=== PATIENT | male | born 1990 | race American Indian/Alaskan Native ===

== ENCOUNTER 2018-05-09 08:26 | Emergency (ER) | payer OTHER ==
[2018-05-09 08:33] VITALS: BP 134/86; PULSE 62; RESP 18; TEMP 97.3; O2SAT 100
--- NOTE | 2018-05-09 09:03 | C.PDOC ---
History Of Present Illness 27 yo male w/o significant PMHx come inf or evaluation of cold sx for past 2 weeks associated with bodyaches, nasal congestion, dry cough, nausea. Patient reports, " was unable to sleep today because of bodyaches and nasal congestion". Pt sts, takes OTC medictaion without significant improvement. Otherwise, pt denies fever, chills, headache, dizziness, neck pain, drooling, CP, SOB, dyspnea, wheezing, abd. pain, hematemesis, diarrhyea, melena, UTI sx, denies recent travel or known sick contact. Ambulate to Ed for evaluation, not in any apparent distress. Time Seen by Provider: 05/09/18 08:29 Chief Complaint (Nursing): Flu-like Symptoms History Per: Patient Past Medical History Reviewed: Historical Data, Nursing Documentation, Vital Signs Vital Signs: Last Vital Signs Temp 97.3 F L 05/09/18 08:30 Pulse 62 05/09/18 08:30 Resp 18 05/09/18 08:30 BP 134/86 05/09/18 08:30 Pulse Ox 100 05/09/18 08:30 - Medical History PMH: No Chronic Diseases Denies: Anxiety, Asthma, Diabetes Surgical History: No Surg Hx Family History: States: No Known Family Hx - Social History Hx Alcohol Use: No Hx Substance Use: No - Immunization History Hx Tetanus Toxoid Vaccination: No Hx Influenza Vaccination: No Hx Pneumococcal Vaccination: No Review Of Systems Except As Marked, All Systems Reviewed And Found Negative. Constitutional: Positive for: Chills, Malaise. Negative for: Fever Eyes: Negative for: Vision Change ENT: Positive for: Nose Discharge, Nose Congestion. Negative for: Ear Discharge, Mouth Swelling, Throat Swelling Cardiovascular: Negative for: Chest Pain Respiratory: Positive for: Cough. Negative for: Shortness of Breath, Wheezing Gastrointestinal: Positive for: Nausea. Negative for: Vomiting, Abdominal Pain, Diarrhea Genitourinary: Negative for: Dysuria Musculoskeletal: Negative for: Neck Pain Skin: Negative for: Rash Neurological: Negative for: Weakness, Numbness, Headache, Dizziness Physical Exam - Physical Exam Appears: Well, Non-toxic, No Acute Distress Skin: Normal Color, Warm, Dry, No Rash Head: Normacephalic Eye(s): bilateral: PERRL Ear(s): Bilateral: Normal Nose: No Flaring, Discharge (B/L nasal congestion with scant clear rhinorrhea) Oral Mucosa: Moist Tongue: Normal Appearing Lips: Normal Appearing Throat: Erythema (mild b/L), No Drooling Neck: Trachea Midline, Supple Cardiovascular: Rhythm Regular, No Murmur, No JVD Respiratory: No Decreased Breath Sounds, No Accessory Muscle Use, No Stridor, No Wheezing Gastrointestinal/Abdominal: Soft, No Tenderness, No Distention, No Guarding, No Rebound Back: No CVA Tenderness Extremity: Normal ROM, No Pedal Edema, No Deformity, No Swelling Neurological/Psych: Oriented x3, Normal Speech, Normal Motor, Normal Sensation, Normal Reflexes ED Course And Treatment O2 Sat by Pulse Oximetry: 100 Pulse Ox Interpretation: Normal - Radiology CXR: Interpreted by Me, Viewed By Me, Read By Radiologist CXR Interpretation: Yes: No Acute Disease Progress Note: On re-eval, pt is afebrile, hemodynamicaly stable. non-toxic. Tolerate Po well in ED. PulsEOx 100% RA. ENT: no acute findings. neck: SUpple, (-) meningeal sign. Lungs: CTA B/L, BS equal B/L. CVS: (+)S1S2, reg. Abd: benign, (-) guarding, (-) rebound. Neuorlogicaly intact. Influenza (-). CXR- normal study. Pt has clinical findings c/w acute bronchitis. Pt advised. ref. to f/u with PMD in 2-3 days for re-eval. return if any new changes. Disposition Counseled Patient/Family Regarding: Studies Performed, Diagnosis, Need For Followup, Rx Given - Disposition Referrals: [facility] [Outside] Disposition: HOME/ ROUTINE Disposition Time: 09:25 Condition: STABLE Additional Instructions: Encourage fluids take medication as prescribed Follow up with [facility] in 2-3 days for re-evaluation. return to ED if any worsening or new changes. Prescriptions: Doxycycline Hyclate [Doryx] 100 mg PO BID #14 cap Ondansetron ODT [Zofran ODT] 1 odt PO BID PRN #6 odt PRN Reason: Nausea/Vomiting Prednisone [Deltasone] 40 mg PO DAILY #6 tablet Instructions: Acute Bronchitis Forms: [facility] (Ukrainian), Work Excuse - Clinical Impression Clinical Impression: Bronchitis
--- NOTE | 2018-05-09 09:31 | RAD ---
Date of service: 05/09/2018 HISTORY: Cough COMPARISON: No prior. TECHNIQUE: Chest PA and lateral FINDINGS: LINES AND TUBES: None. LUNG AND PLEURA: The lungs are well inflated and clear. No pleural effusion or pneumothorax. HEART AND MEDIASTINUM: The heart is not enlarged. No aortic atherosclerotic calcification present. The hilar and mediastinal contours are within normal limits. SKELETAL STRUCTURES: The bony structures are within normal limits for the patient's age. VISUALIZED UPPER ABDOMEN: Normal. OTHER FINDINGS: None. IMPRESSION: No active pulmonary disease.
== END 2018-05-09 10:01 | disposition home or self-care (01) ==
LOC: C.ER 08:26
DX: J40 Bronchitis, not specified as acute or chronic (principal)